=== PATIENT | female | born 1970 | race Caucasian/White ===

== ENCOUNTER → 2017-08-14 | Outpatient (CLI) | payer BC | LOC: MC.RAD 11:00 | DX: Z12.31 Encounter for screening mammogram for malignant neoplasm of breast (principal) ==

== ENCOUNTER → 2017-09-23 | Outpatient (CLI) | payer BC | LOC: COL.RAD 10:08 | DX: K76.89 Other specified diseases of liver (principal) ==

== ENCOUNTER → 2017-09-27 | Outpatient (CLI) | payer BC | LOC: COL.RAD 05:59 | DX: R10.11 Right upper quadrant pain (principal) | CPT/HCPCS: A9537 ==

== ENCOUNTER → 2017-10-28 | Outpatient (CLI) | payer BC | LOC: BHSO 14:59 | DX: F41.1 Generalized anxiety disorder (principal) ==

== ENCOUNTER → 2018-05-08 | Outpatient (CLI) | payer BC | LOC: MC.RAD 08:05 | DX: N60.41 Mammary duct ectasia of right breast (principal) ==

== ENCOUNTER → 2018-09-22 | Outpatient (CLI) | payer BC | LOC: MC.RAD 09:49 | DX: Z12.31 Encounter for screening mammogram for malignant neoplasm of breast (principal) ==

== ENCOUNTER → 2019-09-28 | Outpatient (CLI) | payer BC | LOC: MC.RAD 13:45 | DX: Z12.31 Encounter for screening mammogram for malignant neoplasm of breast (principal) ==

== ENCOUNTER 2019-11-07 17:49 | Emergency (ER) | payer BC ==
[~2019-11-07] VITALS: Ht 160 cm; Wt 77.3 kg
[2019-11-07 18:23] LABS: BASO % 0.3 % (0.0-2.0); EOS # 0.1 (0.0-0.7); EOS % 1.7 % (0-4.0); GRAN # 3.1 (1.4-6.5); GRAN % 48.8 % (42.2-75.2); HEMATOCRIT 43.3 % (37.0-47.0); HEMOGLOBIN 14.4 g/dl (12.5-16.0); LYMPH # 2.6 (1.2-3.4); LYMPH % 41.1 % (20.0-51.0); MEAN CELL VOLUME 95 fl (80.0-100.0); MEAN CORPUSCULAR HEMOGLOBIN 32 pg (27.0-31.0); MEAN CORPUSCULAR HGB CONC 33 g/dl (33.0-37.0); MEAN PLATELET VOLUME 9.2 fl (7.4-10.4); MONO # 0.5 (0.1-0.6); MONO % 7.9 % (1.7-9.3); PLATELET COUNT 433 K/mm3 (130-400); RED BLOOD COUNT 4.57 M/mm3 (4.10-5.30); REDCELL DISTRIBUTION WIDTH-CV 12.7 % (11.5-14.5)
[2019-11-07] MEDS ORDERED: WELLBUTRIN XL300 M1 PO (18:26)
[2019-11-07] MEDS ORDERED: LEVOXYL0.125 MG PO (18:26)
[2019-11-07] MEDS ORDERED: LAMICTAL200 MG PO (18:27)
[2019-11-07 18:29] LABS: ALANINE AMINOTRANSFERASE 15 U/L (9-52); ALBUMIN 4.2 gm/dL (3.5-5.0); ALKALINE PHOSPHATASE 80 U/L (50-136); ANION GAP 11 mmol/L (7-16); AST,SGOT 20 U/L (15-37); BILIRUBIN,TOTAL 0.3 mg/dL (0.0-1.0); BLOOD UREA NITROGEN 10 mg/dL (7-17); CARBON DIOXIDE 24 mmol/L (22-30); CHLORIDE 106 mmol/L (98-107); CREATININE, serum 0.94 (0.52-1.25); GLUCOSE 98 mg/dL (74-106); POTASSIUM 4.2 mmol/L (3.4-5.0); SODIUM 141 mmol/L (137-145)
[2019-11-07 18:42] LABS: TROPONIN-I < 0.012 ng/mL (0.000-0.035)
[2019-11-07 21:15] VITALS: BP 124/80; PULSE 68; TEMP 98.9
== END 2019-11-07 21:20 | disposition home or self-care (01) ==
LOC: COL.ER 17:49
PROVIDERS: Emergency Medicine
DX: R20.2 Paresthesia of skin (principal); R25.2 Cramp and spasm; E03.9 Hypothyroidism, unspecified; F32.9 Major depressive disorder, single episode, unspecified; F41.9 Anxiety disorder, unspecified
CPT/HCPCS: J1885

== ENCOUNTER → 2021-07-18 | Outpatient (CLI) | payer BC ==
[~2021-07-18] MED LIST: LAMICTAL200 MG PO; LEVOXYL0.125 MG PO; WELLBUTRIN XL300 M1 PO
== END ==
LOC: MC.RAD 10:59
DX: Z12.31 Encounter for screening mammogram for malignant neoplasm of breast (principal)

== ENCOUNTER → 2022-06-05 | Outpatient (CLI) | payer BC | LOC: MC.RAD 16:00 | DX: Z12.31 Encounter for screening mammogram for malignant neoplasm of breast (principal) ==

== ENCOUNTER 2024-04-01 05:30 | Day surgery (SDC) | payer BC ==
[~2024-04-01] VITALS: Ht 160 cm; Wt 85.4 kg
[2024-04-01] VITALS (12 sets, daily range): BP systolic 108–165; BP diastolic 56–98; PULSE 73–88; TEMP 97.2–98.8
[~2024-04-01 05:30] MED LIST changes: +LR 1,000 ML IV SCH; +Meclizine 25 MG TAB PO SCH; +diazePAM 5 MG TAB PO SCH
[2024-04-01] MEDS ORDERED: Succinylcholine PF 200 MG/10 ML SYRINGE IV ONE (06:49)
[2024-04-01] MEDS ORDERED: fentaNYL 50 MCG/ML 5 ML VIAL ONE (06:49)
[2024-04-01] MEDS ORDERED: Rocuronium 50 MG/5 ML Multi-Dose VIAL ONE (06:49)
[2024-04-01] MEDS ORDERED: NS 10 ML IV ONE (06:50)
[2024-04-01] MEDS ORDERED: dexAMETHasone 10 MG/ML VIAL ONE (06:50)
[2024-04-01] MEDS ORDERED: Ondansetron 4 MG/2 ML VIAL ONE (06:50)
[2024-04-01] MEDS ORDERED: ESKALITH C450 MG/TAB PO (07:04)
[2024-04-01] MEDS ORDERED: Lidocaine PF 2% (20 MG/ML) 5 ML VIAL ONE (07:05)
[2024-04-01] MEDS ORDERED: CYMBALTA 30MG30 MG PO (07:06)
[2024-04-01] MEDS ORDERED: PRIL40 PO (07:06)
[2024-04-01] MEDS ORDERED: WEGOVY0.25 MG/0. SQ (07:07)
[2024-04-01] MEDS ORDERED: VYVANSE30 MG PO (07:07)
[2024-04-01] MEDS ORDERED: hydrALAZINE 20 MG/ML 1 ML VIAL IV PRN (08:00)
[2024-04-01] MEDS ORDERED: Ondansetron 4 MG/2 ML VIAL IV PRN ×2 (08:00→09:00)
[2024-04-01] MEDS ORDERED: Meperidine 50 MG/ML 1 ML VIAL IV PRN (08:00)
[2024-04-01] MEDS ORDERED: droPERidol 2.5 MG/ML 2 ML VIAL IV PRN (08:00)
[2024-04-01] MEDS ORDERED: HYDROmorphone 1 MG/1 ML SYRINGE [PACU/SDC ONLY] IV PRN ×2 (08:00)
[2024-04-01] MEDS ORDERED: fentaNYL 50 MCG/ML 1 ML SYRINGE/VIAL [PACU/SDC ONLY] IV PRN (08:00)
[2024-04-01] MEDS ORDERED: Naloxone 0.4 MG/ML VIAL IV PRN (09:00)
[2024-04-01] MEDS ORDERED: oxyCODONE 5 MG TAB PO PRN (09:00)
[2024-04-01] MEDS ORDERED: CYMBALTA 60MG60 MG PO (14:29)
[2024-04-01] MEDS ORDERED: SYNTHROID0.1 MG/TAB PO (14:30)
--- NOTE | 2024-04-01 18:45 | NUR ---
THIS NURSE RECEIVED REPORT FROM FAIZA LINDSEY. REPORTED THAT PATIENT'S BLOOD GLUCOSE LEVELS HAD NOT BEEN STABILIZED REGARDLESS INSULIN ADMINISTRATION. NURSE HAD NOT HEARD BACK FROM DR MONIQUE TO OBTAIN HOSPITALIST CONSULT.
[2024-04-01] MEDS ORDERED: Patient's Own Medication Item PO SCH (21:00)
[2024-04-01] MEDS ORDERED: DULoxetine 30 MG CAP PO SCH (22:00)
[2024-04-01] MEDS ORDERED: lamoTRIgine 100 MG TAB PO SCH (22:00)
[2024-04-01] MEDS ORDERED: DULoxetine 60 MG CAP PO SCH (22:00)
[2024-04-02] VITALS (7 sets, daily range): BP systolic 127–142; BP diastolic 80–88; PULSE 71–82; TEMP 98.1–98.3
--- NOTE | 2024-04-02 05:45 | NUR ---
PATIENT RESTING IN BED. ALERT AND ORIENTED. THIS NURSE ADMINISTERED SCHEDULED AM MEDICATIONS. PATIENT REQUESTING PAIN MEDICATION FOR 9/10 PAIN IN HER RIGHT SHOULDER. PATIENT ASKED THIS NURSE IF THIS "WAS NORMAL." THIS NURSE EXPLAINED THAT GAS PAINS ARE COMMONLY RELIEVED BY WALKING FREQUENTLY POST OPERATIVELY. THIS PATIENT REFUSED TO WALK DURING THIS SHIFT. NOW WANTING TO GO FOR A WALK AFTER PAIN MEDICATION IS ADMINISTERED.
[2024-04-02] MEDS ORDERED: Omeprazole 40 MG **** subs to Pantoprazole 40 MG PO SCH (07:00)
[2024-04-02] MEDS ORDERED: Lithium 150 MG CAP PO SCH (09:00)
--- NOTE | 2024-04-02 10:20 | NUR ---
PT RESTING IN BED ATE 100% OF BREAKFAST. DENIES NEEDS, LAP INCISIONS CDI. PT WANTS TO DISCHARGE HOME TODAY.
--- NOTE | 2024-04-02 12:20 | NUR ---
homeworker met with pt to discuss intake assessment. She reports to live alone in [place]. She sees Dr. Matos for PCP needs and obtains medications from [facility] with no issues. She is independent with ADLS and uses a CPAP for DME. She reports her contact as her mother, Mel [phone]. She does have a [facility] at home listing her brother, Matt as primary. She does not know Matt's number, but states her mother has this. Pt has no further concerns. Discharge Plan: home
[2024-04-02] MEDS ORDERED: NORCO 325 MG-51 TAB PO (12:34)
--- NOTE | 2024-04-02 13:36 | NUR ---
Initial visit; Patient thanked Online Marketing Manager for loking in on her and offering God's blessings.
--- NOTE | 2024-04-02 15:26 | NUR ---
DISCHARGE INSTRUCTIONS REVIEWED WITH PT AND FAMILY. QUESTIONS SOLICITED AND ANSWERED. PT LEFT UNIT AMBULATORY.
== END 2024-04-02 15:28 | disposition home or self-care (01) ==
LOC: SDCO 05:30 → SURG 09:30 → SDCO 04-02 15:28 → SURG 04-02 15:28 → SDCO 04-22 07:30
DX: K44.9 Diaphragmatic hernia without obstruction or gangrene (principal); K21.9 Gastro-esophageal reflux disease without esophagitis; G47.33 Obstructive sleep apnea (adult) (pediatric)
CPT/HCPCS: OP; J0690; J1100; J2405; J2704; J2765; J3010; J7120

== ENCOUNTER → 2024-06-10 | Outpatient (CLI) | payer BC ==
[~2024-06-10] MED LIST changes: +CYMBALTA 30MG30 MG PO; +CYMBALTA 60MG60 MG PO; +ESKALITH C450 MG/TAB PO; -LR 1,000 ML IV SCH; -Meclizine 25 MG TAB PO SCH; +NORCO 325 MG-51 TAB PO; +PRIL40 PO; +SYNTHROID0.1 MG/TAB PO; +VYVANSE30 MG PO; +WEGOVY0.25 MG/0. SQ; -diazePAM 5 MG TAB PO SCH
== END ==
LOC: MC.RAD 13:56
DX: Z12.31 Encounter for screening mammogram for malignant neoplasm of breast (principal)